=== PATIENT | female | born 1955 | race Hispanic/Latino ===

== ENCOUNTER 2017-05-11 09:27 | Emergency (ER) | payer OTHER ==
[2017-05-11 10:03] VITALS: RESP 18; BMI 34.9
--- NOTE | 2017-05-11 10:38 | ED PDOC ---
Arrival/HPI - General Chief Complaint: Upper Extremity Problem/Injury Time Seen by Provider: 05/11/17 10:06 Historian: Patient - History of Present Illness Narrative History of Present Illness (Text): 05/11/17 10:09 Pt is a 61 year old female, whose past medical history includes vertigo, presents to the emergency department c/o vertigo and left shoulder pain. The patient complains of left shoulder pain for the past couple of weeks. Pain is worse with movement and radiates to her armpit and left breast. Patient has been taking Advil for the pain with minimal relief. Patient also complains of dizziness since 05/01/17. Dizziness is described as the sensation of the room spinning, is worse with movement and associated with nausea. She notes symptoms are intermittent and similar to her pervious vertigo episodes (first episode of vertigo was yrs ago). She has been taking motion sickness medication but it has not brought her any relief. Patient denies any fevers, diarrhea, chest pain, headaches, abdominal pain, or any other complaints at this time. In regards to her left shoulder pain, its worse when she raises her shoulder (abducts arm). PMD: Dr. Castro Time/Duration: < month (couple of weeks ago) Symptom Onset: Sudden Symptom Course: Intermittent Quality: Other Activities at Onset: Rest Context: Home Past Medical History - Provider Review Nursing Documentation Reviewed: Yes - Past History Past History: No Previous - Infectious Disease Hx of Infectious Diseases: None - Tetanus Immunization Tetanus Immunization: Unknown - Reproductive Menopause: No - Past Medical History Past Medical History: No Previous - Neurological Hx Paralysis: No - Hematological/Oncological Hx Blood Transfusions: No Hx Blood Transfusion Reaction: No - Musculoskeletal/Rheumatological Hx Musculoskeletal Disorders: No - Psychiatric Hx Emotional Abuse: No Hx Physical Abuse: No Hx Substance Use: No - Past Surgical History Past Surgical History: No Previous - Surgical History Hx Orthopedic Surgery: Yes (Right knee surgery) Other/Comment: gist tumor in 2008 - Anesthesia Hx Anesthesia: Yes Hx Anesthesia Reactions: No Hx Malignant Hyperthermia: No - Suicidal Assessment Feels Threatened In Home Enviroment: No Family/Social History - Physician Review Nursing Documentation Reviewed: Yes Family/Social History: Diabetes, Neoplasm/Cancer Smoking Status: Light Smoker < 10 Cigarettes Daily Hx Alcohol Use: No Hx Substance Use: No Hx Substance Use Treatment: No Allergies/Home Meds Allergies/Adverse Reactions: Allergies No Known Allergies Allergy (Verified 05/11/17 10:03) Review of Systems - Physician Review All systems were reviewed & negative as marked: Yes - Review of Systems Constitutional: absent: Fevers Cardiovascular: absent: Chest Pain Gastrointestinal: Nausea. absent: Abdominal Pain Musculoskeletal: Other (left shoulder pain that radiates to her left armpit and breast) Neurological: Dizziness. absent: Headache Physical Exam Vital Signs Reviewed: Yes Vital Signs Temp Pulse Resp BP Pulse Ox 05/11/17 12:58 61 18 117/65 97 05/11/17 11:55 98.1 F 61 18 128/68 97 05/11/17 10:01 98.3 F 71 18 133/71 98 05/11/17 09:59 98.7 F 88 18 105/72 98 Temperature: Afebrile Blood Pressure: Normal Pulse: Regular Respiratory Rate: Normal Appearance: Positive for: Well-Appearing, Non-Toxic, Comfortable Pain Distress: None Mental Status: Positive for: Alert and Oriented X 3 - Systems Exam Head: Present: Atraumatic, Normocephalic Pupils: Present: PERRL Extroacular Muscles: Present: EOMI, Other (horizontal nystagmus) Conjunctiva: Present: Normal Mouth: Present: Moist Mucous Membranes Pharnyx: Present: Normal. No: ERYTHEMA, EXUDATE, TONSILS ENLARGED Neck: Present: Normal Range of Motion Respiratory/Chest: Present: Clear to Auscultation, Good Air Exchange. No: Respiratory Distress, Accessory Muscle Use Cardiovascular: Present: Regular Rate and Rhythm, Normal S1, S2. No: Murmurs Abdomen: Present: Normal Bowel Sounds. No: Tenderness, Distention, Peritoneal Signs Upper Extremity: Present: Normal ROM (with pain at adduction at 90 degrees), Tenderness (tenderness with palpation to the lateral left shoulder ). No: Cyanosis, Edema Lower Extremity: Present: Normal Inspection. No: Edema Neurological: Present: GCS=15, CN II-XII Intact, Speech Normal Skin: Present: Warm, Dry, Normal Color. No: Rashes Psychiatric: Present: Alert, Oriented x 3, Normal Insight, Normal Concentration Medical Decision Making ED Course and Treatment: 05/11/17 10:09 Impression: 61 year old female with left shoulder pain and dizziness. Differential Diagnosis included but are not limited to: Fracture vs. dislocation vs. Vertigo Plan: -- EKG -- Labs -- Chest X-ray -- Shoulder X-ray -- Antivert and Toradol -- Reassess and disposition Progress Notes: EKG: Ordered, reviewed, and independently interpreted the EKG. Rate : 69 BPM Rhythm : NSR Interpretation : inverted T-waves in V3 and V4 Comparison: Similar to previous EKG on 02/11/15 05/11/2017 10:55 X-ray of the left shoulder: Creator : Glen Hutchins MD COMPARISON: No prior. FINDINGS: BONES: Normal. No fracture. JOINTS: Normal. Glenohumeral and acromioclavicular joints preserved. No osteoarthritis. SOFT TISSUES: Normal. OTHER FINDINGS: None. IMPRESSION: Normal radiographs of the left shoulder. 05/11/2017 10:57 Chest X-ray: Creator : Glen Hutchins MD COMPARISON: 02/11/2015 FINDINGS: LUNGS: No active pulmonary disease. PLEURA: No significant pleural effusion identified. No pneumothorax apparent. CARDIOVASCULAR: Normal. OSSEOUS STRUCTURES: No significant abnormalities. VISUALIZED UPPER ABDOMEN: Normal. OTHER FINDINGS: None. IMPRESSION: No active disease. 05/11/2017 11:21 On re-evaluation, patient still complains of mild pain. Additional medication will be given and she will be reevaluated. 11:50 AM - Pt feels better. Will d/c home. - Lab Interpretations Lab Results: 05/11/17 10:30 05/11/17 10:30 Lab Results 05/11/17 10:30: Sodium 140, Potassium 3.8, Chloride 104, Carbon Dioxide 24, Anion Gap 16, BUN 18, Creatinine 0.8, Est GFR ( Amer) > 60, Est GFR (Non- Af Amer) > 60, Random Glucose 113 H, Calcium 9.5, Total Bilirubin 0.5, AST 23, ALT 36, Alkaline Phosphatase 82, Lactate Dehydrogenase 298 L, Total Creatine Kinase 65, Troponin I < 0.01, Total Protein 7.7, Albumin 4.3, Globulin 3.3, Albumin/Globulin Ratio 1.3 05/11/17 10:30: PT 10.3, INR 0.95, APTT 26.9 05/11/17 10:30: WBC 7.4 D, RBC 4.54, Hgb 14.0, Hct 39.9, MCV 87.9, MCH 30.8, MCHC 35.1, RDW 12.6, Plt Count 275, MPV 9.8, Gran % 63.1, Lymph % (Auto) 26.7, Woodson % (Auto) 5.7, Eos % (Auto) 3.7, Baso % (Auto) 0.8, Gran # 4.66, Lymph # 2.0 , Woodson # 0.4, Eos # 0.3, Baso # 0.06 I have reviewed the lab results: Yes - RAD Interpretation Radiology Orders: 05/11/17 10:17 SHOULDER LEFT [RAD] Stat 05/11/17 10:20 CHEST TWO VIEWS (PA/LAT) [RAD] Stat Chief Recordist: ED Physician - EKG Interpretation Interpreted by ED Physician: Yes Type: 12 lead EKG - Medication Orders Current Medication Orders: Discontinued Medications Ketorolac Tromethamine (Toradol) 15 mg IVP STAT STA Stop: 05/11/17 10:22 Last Admin: 05/11/17 10:56 Dose: 15 mg Meclizine HCl (Antivert) 50 mg PO STAT STA Stop: 05/11/17 10:18 Last Admin: 05/11/17 10:56 Dose: 50 mg - Scribe Statement The provider has reviewed the documentation as recorded by the Scribe 05/11/17 Fallon Crowley training with Angella Serrano Provider Scribe Attestation: All medical record entries made by the Scribe were at my direction and personally dictated by me. I have reviewed the chart and agree that the record accurately reflects my personal performance of the history, physical exam, medical decision making, and the department course for this patient. I have also personally directed, reviewed, and agree with the discharge instructions and disposition. Disposition/Present on Arrival - Present on Arrival Any Indicators Present on Arrival: No History of DVT/PE: No History of Uncontrolled Diabetes: No Urinary Catheter: No History of Decub. Ulcer: No History Surgical Site Infection Following: None - Disposition Have Diagnosis and Disposition been Completed?: Yes Diagnosis: Vertigo, Shoulder pain, left Disposition: HOME/ ROUTINE Disposition Time: 12:43 Patient Plan: Discharge Condition: IMPROVED Discharge Instructions (ExitCare): Rotator Cuff Injury (ED), Vertigo (ED) Print Language: TRISTANIAN Additional Instructions: Ms. Dave, thank you for letting us take care of you today. Return to the ER if your symptoms worsen, or if any problems. Take the medication listed below as prescribed. Follow up with Dr. Castro this week. He may want to order a MRI for you. Prescriptions: Acetaminophen with Codeine [Tylenol with Codeine #3 Tablet] 2 tab PO Q6 PRN #10 tablet PRN Reason: Pain, Severe (8-10) Meclizine [Meclizine*] 1 tab PO Q6 PRN #30 tab PRN Reason: Dizziness Naproxen [Anaprox DS] 1 tab PO BID PRN #20 tab PRN Reason: Pain, Moderate (4-7) Referrals: Carlos Castro MD [Staff Provider] - Follow up with primary Forms: [employer] (Thai)
[2017-05-11 10:52] LABS: BASO # 0.06 K/mm3 (0.0-2.0); BASO % 0.8 % (0.0-3.0); EOS # 0.3 (0.0-0.7); EOS % 3.7 % (1.5-5.0); GRAN # 4.66 (1.4-6.5); GRAN % 63.1 % (50.0-68.0); LYMPH % 26.7 % (22.0-35.0); MEAN CELL VOLUME 87.9 fL (80.0-105.0); MEAN CORPUSCULAR HEMOGLOBIN 30.8 pg (25.0-35.0); MEAN CORPUSCULAR HGB CONC 35.1 g/dl (31.0-37.0); MEAN PLATELET VOLUME 9.8 fl (7.0-11.0); MONO # 0.4 (0.1-0.6); MONO % 5.7 % (1.0-6.0); PLATELET COUNT 275 10^3/uL (120.0-450.0); RBC 4.54 10^6/uL (3.5-6.1); RED CELL DISTRIBUTION WIDTH 12.6 % (11.5-14.5); WHITE BLOOD COUNT 7.4 10^3/ul (4.5-11.0)
--- NOTE | 2017-05-11 10:53 | RAD ---
PROCEDURE: Radiographs of the Left Shoulder HISTORY: Left shoulder pain COMPARISON: No prior. FINDINGS: BONES: Normal. No fracture. JOINTS: Normal. Glenohumeral and acromioclavicular joints preserved. No osteoarthritis. SOFT TISSUES: Normal. OTHER FINDINGS: None. IMPRESSION: Normal radiographs of the left shoulder.
--- NOTE | 2017-05-11 10:53 | RAD ---
HISTORY: left shoulder and chest pain COMPARISON: 02/11/2015 TECHNIQUE: Chest PA and lateral FINDINGS: LUNGS: No active pulmonary disease. PLEURA: No significant pleural effusion identified. No pneumothorax apparent. CARDIOVASCULAR: Normal. OSSEOUS STRUCTURES: No significant abnormalities. VISUALIZED UPPER ABDOMEN: Normal. OTHER FINDINGS: None. IMPRESSION: No active disease.
[2017-05-11 10:58] LABS: INR 0.95 (0.93-1.08); PARTIAL THROMBOPLASTIN TIME 26.9 Seconds (23.7-30.8); PROTHROMBIN TIME 10.3 Seconds (9.9-11.8)
[2017-05-11 11:02] LABS: ALB/GLOB RATIO 1.3 (1.1-1.8); ALBUMIN 4.3 g/dL (3.0-4.8); ALT/SGPT 36 U/L (7-56); AST/SGOT 23 U/L (15-39); BLOOD UREA NITROGEN 18 mg/dL (7-21); CALCIUM 9.5 mg/dL (8.4-10.5); GFR AFRICAN-AMERICAN > 60; GFR NON-AFRICAN AMERICAN > 60
[2017-05-11 11:15] LABS: TROPONIN I < 0.01 ng/mL
[2017-05-11 11:57] VITALS: PULSE 61; TEMP 98.1; O2SAT 97
--- NOTE | 2017-05-11 12:28 | CARD ---
APPROVED REPORT EKG Measurement Heart [id number] <Conclusion> Normal sinus rhythm T wave abnormality, consider anterior ischemia Abnormal ECG
[2017-05-11 12:58] VITALS: BP 117/65
== END 2017-05-11 13:04 | disposition home or self-care (01) ==
LOC: ED 09:27
DX: R42 Dizziness and giddiness (principal); M25.512 Pain in left shoulder; F17.210 Nicotine dependence, cigarettes, uncomplicated
CPT/HCPCS: 71020; 73030; 80053; 82550; 83615; 84484; 85025; 85610; 85730; 93005; 96374; 99284; J1885